=== PATIENT | female | born 1975 | race Caucasian/White ===

== ENCOUNTER 2025-01-14 12:17 | Emergency (ER) | payer OTHER ==
[~2025-01-14] VITALS: Ht 154.9 cm; Wt 65.0 kg
[2025-01-14 12:23] VITALS: BP 154/80; PULSE 90; RESP 18; TEMP 36.7; O2SAT 98
[2025-01-14] MEDS: IBUPROFEN 600MG TABLET PO ONE (13:53)
[2025-01-14] MEDS: METHOCARBAMOL 500MG TABLET PO ONE (13:53)
[2025-01-14] MEDS ORDERED: METH-653 MT (16:29)
[2025-01-14] MEDS ORDERED: IBUP-2029 MT (16:29)
== END 2025-01-14 17:01 | disposition home or self-care (01) ==
LOC: ER 12:17
DX: S33.5XXA Sprain of ligaments of lumbar spine, initial encounter (principal); S20.219A Contusion of unspecified front wall of thorax, initial encounter; E11.9 Type 2 diabetes mellitus without complications; V89.2XXA Person injured in unspecified motor-vehicle accident, traffic, initial encounter; Y93.89 Activity, other specified; Y92.410 Unspecified street and highway as the place of occurrence of the external cause; Y99.8 Other external cause status
CPT/HCPCS: 71045; 72100; 99284